=== PATIENT | male | born 1980 | race Caucasian/White ===

== ENCOUNTER 2019-02-10 21:22 | Inpatient (IN) | payer BC, SELFPAY ==
[2019-02-10 22:14] LABS: #Eosinphils 0.1 thou/uL (0.0-0.7); #Lymphocytes 2.4 thou/uL (1.20-3.40); #Monocytes 1.2 thou/uL (0.11-0.59); #Neutrophils 8.9 thou/uL (1.40-6.50); %Basophils 0.4 % (0.0-1.0); %Eosinophils 0.9 % (0.0-10.0); %Lymphocytes 19.3 % (21.0-51.0); %Monocytes 9.1 % (0.0-10.0); %Neutrophils 70.4 % (42.0-75.0); Hemoglobin 13.5 g/dL (14.0-18.0); Mean Corpuscular HGB CONC 32.8 g/dL (32.0-36.0); Mean Corpuscular Hemoglobin 28.6 pg (27.0-31.0); Mean Corpuscular Volume 87.1 fL (78.0-98.0); Mean Platelet Volume 7.3 fL (7.4-10.4); Platelet Count 288 thou/uL (130-400); RBC Distribution Width 12.1 % (11.5-14.5); Red Blood Cell (RBC) Count 4.74 mill/uL (4.70-6.10); White Blood Cell (WBC) Count 12.6 thou/uL (4.8-10.8)
[2019-02-10 22:33] LABS: ALT (SGPT) 57 U/L (8-55); AST (SGOT) 31 U/L (5-34); Albumin 4.2 g/dL (3.5-5.0); Alkaline Phosphatase 97 U/L (40-150); Anion Gap 13 mmol/L (10-20); BUN (Urea Nitrogen) 11 mg/dL (8.9-20.6); Bilirubin, Total 0.5 mg/dL (0.2-1.2); Calc. Creatinine Clearance 0 mL/min (70-130); Calcium 9.8 mg/dL (7.8-10.44); Carbon Dioxide 27 mmol/L (22-29); Chloride 103 mmol/L (98-107); Estimated GFR-MDRD 76; Globulin 3.3 g/dL (2.4-3.5); Glucose 91 mg/dL (70-105); Potassium 3.6 mmol/L (3.5-5.1); Protein, Total 7.5 g/dL (6.0-8.3); Sodium 139 mmol/L (136-145)
[2019-02-10] MEDS ORDERED: Adacel (T-DAP) 0.5 ML SYRINGE ONE (22:52)
[2019-02-10] MEDS ORDERED: metroNIDAZOLE 500 MG/100 ML BAG ONE (23:33)
[2019-02-10] MEDS ORDERED: Acetaminophen 1,000 MG in Premix Bag 1 BAG IVPB SCH (23:45)
[2019-02-11] MEDS ORDERED: Acetaminophen 1,000 MG in Premix Bag 1 BAG IVPB PRN (00:59)
[2019-02-11] MEDS ORDERED: Ondansetron PF 4 MG/2 ML Vial SLOW IVP PRN (01:00)
[2019-02-11] MEDS: Dextrose 5 % And 0.9 % NaCl 1,000 ML IV SCH ×3 (01:09→22:15)
[2019-02-11 01:36] VITALS: BMI 29.5
--- NOTE | 2019-02-11 02:22 | HP ---
REASON FOR ADMISSION: Perirectal abscess. HISTORY OF PRESENT ILLNESS: Mr. Juarez is a pleasant 38-year-old gentleman who has a known history of a left-sided ulcerative colitis dating to 2002. Intermittently, I have seen him since 2007. In the past, he has been on 5-ASA oral and rectal medications as well as occasional rectal steroids. At one time, he was Imuran or 6MP, but did not like these. He felt he was getting more infections, so he stopped them. He had pretty severe disease in [address] Sona Malagon in [place] for a second opinion. They recommended Rowasa enemas, Lialda, and a trial of 6MP instead of Imuran which we did for a while and he actually went to remission. We did discuss even surgery anti-TNF inhibitors, which he did not want to take. Ultimately, he stopped all those medications. In 2011, he had a very minimal disease and was in a clinical remission and had very mild endoscopic disease. He was maintaining on probiotics, and intermittently since that time, he had to take Lialda. In 2012, he was hospitalized with C diff after being on antibiotics for sinus issues. He had very mild inflammation at that endoscopy. Essentially since then, he has been in clinical remission. He undergoes yearly surveillance endoscopies, and on his last exam in June of 2018, had no active disease endoscopically, but on biopsies he had mild colitis of cecum, ascending, transverse, and splenic flexure all the way to the rectum. No definitive ulceration or crypt abscesses seen on those two biopsies, only a small amount of neutrophils and eosinophils. Over the past couple of years when he has had intermittent flare in symptoms, he has noted a small nodule in his perianal area, and on his last digital exam, I could feel what appeared to be small a cord in this area, likely a small fistula tract, but it never had drainage or expanded at one point in time. About 5 years ago, we treated him empirically with little bit of Flagyl and it went away, and it has never drained and he has never had any fissure. I saw him early in this month with flare in symptoms of diarrhea up to 10 to 15 times per day. He thought he had an intestinal viral illness, but symptoms persist. He just felt like he had mild arthralgias and myalgias consistent with his previous flares and started seeing bloody, came to see me. On digital exam, he had the perirectal area was normal, not enlarged. He had no fissures or fissure tracts. At that time, we went ahead and started him on Rowasa and then a steroid taper as well as Lialda which he was not taking. Within the past week, his symptoms have come under control, but he called me that over the weekend noting that he felt that his perirectal nodule was large in size, becoming tender. It was not draining. He had been on some empiric vancomycin for possible Clostridium difficile. He had this before, although Clostridium difficile testing had been negative. That was mainly at his own request. Over the weekend when he began to notice the nodule enlarging in the rectal area, we put him on sitz baths and I called him on Flagyl. He called me today. He was fishing in [place] and noted that it got much larger and was involving inflammation in his right buttocks and causing some severe pain, so he left the trip from [place] and came back here. I saw in the emergency room tonight. He has had low-grade temperature, although he has not taken it; myalgias; feels fluish. He has had no perianal drainage. He has had one bowel movement today with a scant amount of blood, but more formed stool. He has no abdominal pain. He has no oral ulcers, arthralgias, or myalgias. PAST MEDICAL HISTORY: Ulcerative colitis, left-sided. PAST SURGICAL HISTORY: [facility] surgery, left elbow. ALLERGIES: CODEINE. MEDICATIONS AT HOME: 1. Finished steroid taper. 2. Cortenema nightly. 3. Lialda 3 times a day. 4. Oral vancomycin which he is finishing. 5. Oral Flagyl. PHYSICAL EXAMINATION: VITAL SIGNS: Temperature 98, pulse 82, and blood pressure is 137/82. SKIN: Little warm to touch. HEENT: His oropharynx with overt lesions. NECK: Supple. No adenopathy. LUNGS: Clear. HEART: Regular rate and rhythm without clicks or murmurs. ABDOMEN: Soft and nontender without rebound or guarding. EXTREMITIES: No clubbing, cyanosis, or edema. RECTAL: Reveals a perirectal abscess about little bit smaller than a golf ball size right buttock area on digital exam. I feel no fistulous tract in the inside. There is some mild purulent drainage in the rectal exam. The abscess is tense under the skin and there is some cellulitis involving the buttocks, but no crepitus or severe erythema. Does not track toward the scrotal area. LABORATORY DATA: White count 12.6, hemoglobin 13.2, platelet count 228. Comprehensive metabolic profile was normal, except for an ALT of 57, it was 78 back in 2013. He has had previous hepatitis A, B, and C serologies negative. ASSESSMENT: Inflammatory bowel disease has been treated as left-sided ulcerative colitis with perineal abscess. He has had some small wounds in the past, but has since ever drained or had to be intervened with therapeutically. It always seemed to go along with his flares. In light of this, this may be more Crohn's, but he definitely has a perirectal abscess at this time. I will talk with General Surgery, who is going to see him in the morning. PLAN: We will start IV antibiotics of Levaquin and Flagyl. He does not want narcotics for pain. We will give him . We will start IV fluids. Keep on a liquid diet. N.p.o. after midnight for drainage of perirectal abscess. As far as inflammatory bowel disease, we may go ahead at some point in time either during this admission or shortly thereafter to of sigmoidoscopy and see what the status of his disease is. I have talked to him and his and father at the bedside as well about the possibilities of moving on different medications such as TNF specially with the perirectal abscess, which may help to prevent those in the future. Job ID: [id number]
[2019-02-11 04:02] LABS: Bacteria/HPF None Seen HPF (None Seen); Bilirubin Negative (Negative); Blood, Urine Negative (Negative); Clarity Clear (Clear); Glucose, Urine (Dipstick) Normal (Negative); Leukocyte Negative Leu/uL (Negative); Nitrite Negative (Negative); Protein, Urine (Dipstick) Negative (Neg-Trace); Squamous Epithelial None Seen HPF (0-3); Urobilinogen Normal mg/dL (Less than 2); WBC/HPF 0-3 HPF (0-3)
[2019-02-11] MEDS: metroNIDAZOLE 500 MG in Premix Bag 1 BAG IVPB SCH ×2 (08:55→16:50)
[2019-02-11] MEDS ORDERED: Lidocaine 2% Jelly 5 ML TUBE ONE (09:59)
[2019-02-11] MEDS ORDERED: Bupivacaine/Epinephrine 0.25% 30 ML VIAL ONE (09:59)
[2019-02-11] MEDS ORDERED: Midazolam HCl 2 mg/2 ml Vial ONE (10:39)
[2019-02-11] MEDS ORDERED: Fentanyl 100 MCG/2 ML VIAL ONE ×4 (10:39→12:12)
--- NOTE | 2019-02-11 12:33 | CON ---
DATE OF CONSULTATION: 02/11/2019 CONSULTING PHYSICIAN: Robert Loera MD REASON FOR CONSULTATION: Perirectal abscess. HISTORY OF PRESENT ILLNESS: The patient is a very pleasant 38-year-old white male. He has some history of inflammatory bowel disease since about 2004. He has had waxing and waning course with this over the years. He tells me at some point he was seen in consultation for a total colectomy and at other times he has been in complete remission and asymptomatic for several years at a time. He had a flare within the past month and was being treated with oral steroids followed by a steroid enema and Lialda. He also appeared to potentially have Clostridium difficile and was finishing a course of oral vancomycin in regard to this. About 3 days ago, he noted a pinpoint area of discomfort and induration adjacent to his rectum. Over the course of 2 or 3 days, it has expanded dramatically and is now about golf ball size. He was seen by his circuit judge, Dr. Loera, yesterday and was admitted to the hospital. I am consulted for further management of this. PAST MEDICAL HISTORY: Suspected ulcerative colitis. PAST SURGICAL HISTORY: [facility] surgery of his left elbow. ALLERGIES: TO CODEINE AND MORPHINE. MEDICATIONS: 1. He recently completed steroid taper. 2. Cortenema. 3. Lialda. 4. Completing course of oral vancomycin. PERSONAL AND SOCIAL HISTORY: He is with 3 children. He works in financial services. He does not smoke and drinks alcohol occasionally. REVIEW OF SYSTEMS: Otherwise, unremarkable. FAMILY HISTORY: Noncontributory. PHYSICAL EXAMINATION: VITAL SIGNS: He is about 5 feet and 11 inches, weight is 218 pounds. He is afebrile and vital signs are within normal limits. GENERAL: He is a well-developed, well-nourished, pleasant white male, resting in bed, in no acute distress. He is alert and oriented x3. HEAD, EYES, EARS, NOSE, AND THROAT: Unremarkable. NECK: Supple without mass or tenderness. LUNGS: Clear to auscultation throughout. CARDIAC: Regular rate and rhythm without murmur. ABDOMEN: Soft, nontender, and nondistended. EXTREMITIES: Unremarkable. RECTAL: Digital exam is not performed. There was an obvious fluctuant perirectal abscess. This appears to primarily be to the right side of the anus, perhaps at the 8 o'clock radian. It is large enough, however, that it encompasses several hours on the radian scale. LABORATORY DATA: CBC reveals white blood cell count of 12.6, hemoglobin 13.5. Comprehensive metabolic panel is unremarkable except that he has an elevated C-reactive protein of 5.6. ASSESSMENT: The patient with obvious perirectal abscess. PLAN: Incision and drainage. I have discussed the procedure in detail with the patient. His parents are at bedside and this was discussed with them as well. They understand and agree to proceed with surgery at this time. Job ID: [id number]
[2019-02-11] MEDS ORDERED: HYDROcodone/Acetaminophen 7.5/325 mg Tablet PO PRN (12:49)
[2019-02-11] MEDS ORDERED: traMADol HCl 50 MG TAB PO PRN (15:42)
[2019-02-12] MEDS: metroNIDAZOLE 500 MG in Premix Bag 1 BAG IVPB SCH ×3 (00:01→16:49)
--- NOTE | 2019-02-12 02:25 | OP ---
DATE OF PROCEDURE: 02/11/2019 PREOPERATIVE DIAGNOSIS: Left perirectal abscess (3 o'clock radian). POSTOPERATIVE DIAGNOSIS: Left perirectal abscess (3 o'clock radian). OPERATION PERFORMED: Incision and drainage of perirectal abscess. ANESTHESIA: General with laryngeal mask airway. INDICATIONS: The patient is a 38-year-old white male. He has a history of inflammatory bowel disease. He developed perirectal abscess over the past couple of days and now has a large painful fluctuant mass. He is taken to the operative room at this time for incision and drainage. DESCRIPTION OF OPERATION: Informed consent was obtained. The patient was taken to the operating room where general anesthesia was obtained with the patient in supine position. He was placed into dorsal lithotomy using candy-cane stirrups. Perianal area was trimmed of hair, prepped with Betadine and draped in sterile fashion. Local anesthetic was infiltrated around the obvious fluctuant mass using 0.25% Marcaine with epinephrine. A stab incision was then created over the fluctuant lesion. Dark purulent material was expressed. Cultures were obtained. The overlying tissue was sharply excised in order to completely unroof the abscess cavity. Internal loculations were taken down. There did appear to be a potential area of communication with the distal rectum on the medial aspect of the abscess cavity. A tract was not identified, but there was a thin layer of tissue with this area. Hemostasis was obtained with electrocautery. The wound was irrigated with peroxide. It was debrided with gauze debridement and packed with peroxide moistened gauze. Dry gauze dress was placed externally. There were no complications. The size of the abscess cavity when completed was about 2.5 cm in diameter externally, extending internally about 2 cm. Job ID: [id number]
--- NOTE | 2019-02-12 08:54 | PRG ---
DATE OF SERVICE: 02/11/2019 SUBJECTIVE: Mr. Juarez and in quite a bit of pain and drainage. He has eaten a little bit, still mildly nauseated. OBJECTIVE: VITAL SIGNS: Temperature 98.7, pulse 87, blood pressure 130/79. LUNGS: Clear. HEART: Regular rate and rhythm. ABDOMEN: Soft, nontender. He has packing in the perirectal area. EXTREMITIES: No clubbing, cyanosis, or edema. LABORATORY DATA: Yesterday C-reactive protein came back at 5.7, sedimentation rate was 16. ASSESSMENT: 1. Inflammatory bowel disease, previously treated as ulcerative colitis, seemingly left-sided limited disease, waxing, waning in severity with recent flare, responding to Cortenema and Lialda with no Clostridium difficile. 2. Perirectal abscess, status post drainage. This raises concern of Crohn's manifestation versus inflammatory bowel disease. PLAN: We will plan for discharge home tomorrow on oral 5-ASAs. We will hold off on the steroid enemas. Plan for flexible sigmoidoscopy next week to re-evaluate his inflammatory bowel disease. It looks more like Crohn's and go ahead and start anti TNF inhibitor . Job ID: [id number]
[2019-02-12] MEDS ORDERED: Acetaminophen 1,000 MG in Premix Bag 1 BAG IVPB PRN (11:12)
[2019-02-12 16:51] VITALS: BP 132/81; TEMP 97.6
--- NOTE | 2019-02-13 06:10 | DIS ---
DATE OF ADMISSION: 02/10/2019 DATE OF DISCHARGE: 02/12/2019 ADMITTING DIAGNOSES: 1. History of ulcerative colitis, recent flare. 2. Perirectal abscess. CONSULTS: Harris Gan MD. SURGERIES: I and D of perirectal abscess by Dr. Harris Gan. DISCHARGE DISPOSITION: The patient will be discharged home on regular diet. DISCHARGE INSTRUCTIONS: 1. Continue Tylenol p.r.n. for pain. We will resume his Lialda 1.2 g four p.o. q.a.m. 2. We will finish the vancomycin he has at home and stop the metronidazole he has at home. We will see him back in the office in 1 week. HOSPITAL COURSE: The patient was admitted to the hospital via the emergency room. He had been called me noting that he was having worsening and increased painful fluctuance in his right buttocks area. In the emergency room, physical exam confirmed perirectal abscess. He had no overt fever, except for initial temperature of 99.8 on admission. His white count was 12.6, hemoglobin was 13.5. C-reactive protein was 5.5. Liver function tests were normal. ESR was 16. The patient was admitted, placed on IV antibiotics overnight and then had a drainage of his perirectal abscess yesterday. I observed him yesterday overnight. He has continued to improve with decreased pain. He has had a bowel movement and he will go home today. General Surgery is recommended sitz baths and also to let the packing just come out. Job ID: [id number]
== END 2019-02-12 18:15 | disposition home or self-care (01) | DRG 345 ==
LOC: ERS 21:22 → T4-A 22:15
PROVIDERS: ADMIT Internal Medicine Gastroenterology; ATTEND Internal Medicine Gastroenterology
PROC: 0D9P0ZZ Drainage of Rectum, Open Approach (ICD-10-PCS; principal; 2019-02-11)
DX: K61.1 Rectal abscess (principal); K51.90 Ulcerative colitis, unspecified, without complications; Z88.5 Allergy status to narcotic agent
CPT/HCPCS: 36415; 80053; 81001; 83605; 85025; 85652; 86140; 86480; 87070; 87077; 87086; 87186; 87205; 90471; 90715; 96365; 96374; J0131; J1956; J2250; J3010

== ENCOUNTER 2019-10-14 10:17 | Outpatient (CLI) | payer BC | END 2019-10-14 10:18 | disposition home or self-care (01) | LOC: CTENTCT 10:17 | PROVIDERS: ATTEND Otolaryngology Plastic Surgery within the Head & Neck | DX: J34.2 Deviated nasal septum (principal); J01.91 Acute recurrent sinusitis, unspecified | CPT/HCPCS: 70486 ==

== ENCOUNTER 2019-11-07 10:00 | Outpatient (CLI) | payer BC ==
--- NOTE | 2019-11-07 10:21 | RAD ---
SUPINE ABDOMEN: Date: 11/07/2019 HISTORY: Left abdominal pain. FINDINGS: Bowel gas pattern unremarkable. There is scattered stool and gas throughout the colon. Small bowel ga s pattern is unremarkable. No mass effect or abnormal calcification. Osseous structures appear unrema rkable. IMPRESSION: Unremarkable bowel gas pattern. POS: [facility]
== END 2019-11-07 10:01 | disposition home or self-care (01) ==
LOC: RAD-FRANK 10:00
PROVIDERS: ATTEND Nurse Practitioner Family
DX: R10.9 Unspecified abdominal pain (principal)
CPT/HCPCS: 74018

== ENCOUNTER 2019-11-17 05:42 | Outpatient (CLI) | payer BC, OTHER ==
[2019-11-17 17:59] LABS: SARS-CoV-2 MS2 Positive; SARS-CoV-2 N Gene Negative; SARS-CoV-2 S Gene Negative; SARS-CoV-2 orf1ab Negative
== END 2019-11-17 05:43 | disposition home or self-care (01) ==
LOC: LABBT 05:42
PROVIDERS: ATTEND Otolaryngology Plastic Surgery within the Head & Neck
DX: Z01.812 Encounter for preprocedural laboratory examination (principal); Z11.59 Encounter for screening for other viral diseases; J34.3 Hypertrophy of nasal turbinates; J32.8 Other chronic sinusitis; K21.9 Gastro-esophageal reflux disease without esophagitis; H54.7 Unspecified visual loss; J34.2 Deviated nasal septum; R68.89 Other general symptoms and signs
CPT/HCPCS: 87635; U0002

== ENCOUNTER 2019-11-19 05:50 | Day surgery (SDC) | payer BC ==
[2019-11-17 09:44] VITALS: BMI 30.2
[2019-11-19] MEDS ORDERED: Midazolam HCl 2 mg/2 ml Vial ONE (06:27)
[2019-11-19] MEDS ORDERED: Fentanyl 100 MCG/2 ML VIAL ONE ×3 (06:27→09:16)
[2019-11-19] MEDS ORDERED: AFRIN NASAL MIST 15 ML BOT ONE ×2 (06:46→06:47)
[2019-11-19] MEDS ORDERED: Lidocaine 1% w/Epinephrine 1:100K 20 ML VIAL ONE (06:46)
[2019-11-19] MEDS ORDERED: Bacitracin Zinc Ointment 30 gm TUBE ONE (06:46)
[2019-11-19] MEDS ORDERED: Lidocaine 1% PF 5 ML VIAL ONE (08:09)
[2019-11-19] MEDS ORDERED: Ondansetron PF 4 MG/2 ML Vial ONE (08:09)
[2019-11-19] MEDS ORDERED: Succinylcholine Chloride 20 MG/ML 10 ml SYRINGE FS ONE (08:09)
[2019-11-19] MEDS ORDERED: Rocuronium Bromide 10 MG/ML (10ML VIAL) ONE (08:09)
[2019-11-19] MEDS ORDERED: Dexamethasone 20 MG/5 ML VIAL ONE (08:09)
[2019-11-19] MEDS ORDERED: Glycopyrrolate 0.2 MG/ML 5 ML SYRINGE ONE (08:09)
[2019-11-19] MEDS ORDERED: PROPOFOL 200 MG/20 ML VIAL ONE (08:09)
[2019-11-19] MEDS ORDERED: Labetalol HCl 100 MG/20 ML VIAL ONE ×2 (08:09→08:45)
[2019-11-19] MEDS ORDERED: hydrALAZINE 20 MG/ML VIAL ONE (09:05)
[2019-11-19] MEDS ORDERED: Hydrocodone-Acetamin 15 ML UDCUP ONE (10:09)
--- NOTE | 2019-11-19 11:28 | OP ---
DATE OF PROCEDURE: 11/19/2019 PREOPERATIVE DIAGNOSES: 1. Chronic rhinosinusitis. 2. Nasal septal deviation. 3. Bilateral inferior turbinate hypertrophy. 4. Nasal obstruction. 5. Headaches. POSTOPERATIVE DIAGNOSES: 1. Chronic rhinosinusitis. 2. Nasal septal deviation. 3. Bilateral inferior turbinate hypertrophy. 4. Nasal obstruction. 5. Headaches. PROCEDURES: 1. Bilateral endoscopic sinus surgery, total ethmoidectomy including sphenoidotomy with removal of tissue. 2. Bilateral endoscopic sinus surgery, maxillary antrostomy. 3. Bilateral endoscopic sinus surgery, frontal sinusotomy. 4. Nasal septoplasty. 5. Bilateral inferior turbinate submucosal resection. ESTIMATED BLOOD LOSS: 50 mL. COMPLICATIONS: None. ANESTHESIA: GETA. PROCEDURE IN DETAIL: Patient was taken to the operating room and placed supine on the table. General endotracheal anesthesia was obtained by the anesthesia staff. Then 1% lidocaine with 1:100,000 epinephrine was injected into the nasal septum as well as the inferior turbinates. The patient was prepped and draped in standard surgical fashion. The Afrin pledgets were then removed. A Overlea incision was made on the left nasal septum. Submucoperichondrial dissection was performed bilaterally of the deviated portions of the septum, which included the maxillary crest and the crest deviation, as well as the mid portion of the septum. Cartilage and bony deviation was removed, leaving a generous caudal and dorsal strut. Any straight pieces of cartilage were then placed within the cartilage press, pressed, straightened, and then placed between the mucoperichondrial flaps, which were then closed using a 4-0 gut stitch. The inferior turbinates were then punctured with the submucosal Coblation machine, and 3 separate coblations were delivered to the anterior inferior portion of the inferior turbinates. Following this, the nasal cavity was irrigated. All debris was removed. An orogastric tube was placed. Gastric contents and Vargas splints were then placed in the nasal cavity and sutured with a 3-0 silk stitch. Following this, the 0-degree endoscope was advanced into the middle meatus. The middle turbinates were gently medialized and the uncinate process was visualized bilaterally. The uncinate was then anteriorly fractured using a ball-ended probe bilaterally. Thick purulence was noted from the maxillary sinuses bilaterally and a culture was taken endoscopically from this right maxillary sinus. Following this, the 0-degree microdebrider was used to remove the uncinate process bilaterally as well as widen the maxillary sinus ostia bilaterally along with the straight Blakesley forceps. Following this, the ethmoidal bulla was identified bilaterally and was punctured on its medial and inferior aspect using the 0-degree microdebrider bilaterally. The ethmoidal bulla was removed along with the anterior ethmoidal cells using the 0-degree microdebrider and the up-biting Blakesley forceps bilaterally. Following this, the grand lamella was identified and was punctured into the posterior ethmoidal cells. Working from posterior to anterior, the ethmoidal cells were opened in a mucosal sparing technique. Following this, the sphenoid sinus ostia were identified. There was polypoid tissue obstructing the area along with purulence, which was removed using the 0-degree microdebrider and straight Blakesley forceps. Following this, the sphenoid sinus ostia were then punctured using the 0-degree microdebrider and the sphenoid sinus ostia were widened in a medial and inferior direction bilaterally. Following this, a 45-degree endoscope along with the 40-degree microdebrider blade was used to further open the anterior ethmoidal cells and expose the frontal sinus ostia bilaterally. The frontal sinus ostia were then widened using the 40-degree microdebrider and up-biting Blakesley forceps bilaterally. Following this, the nasal cavity was irrigated. NasoPore packing was placed within the middle meatus bilaterally. Vargas splints were placed and secured, and the inferior turbinates were laterally outfractured using the Cubero elevator. The patient tolerated procedure well. Job ID: [id number]
== END 2019-11-19 12:00 | disposition home or self-care (01) ==
LOC: SDC 05:50
PROVIDERS: ATTEND Otolaryngology Plastic Surgery within the Head & Neck
PROC: 09BL0ZZ Excision of Nasal Turbinate, Open Approach (ICD-10-PCS; principal; 2019-11-19)
PROC: 099Q8ZZ Drainage of Right Maxillary Sinus, Via Natural or Artificial Opening Endoscopic (ICD-10-PCS; principal; 2019-11-19)
PROC: 09TV8ZZ Resection of Left Ethmoid Sinus, Via Natural or Artificial Opening Endoscopic (ICD-10-PCS; principal; 2019-11-19)
PROC: 09RM07Z Replacement of Nasal Septum with Autologous Tissue Substitute, Open Approach (ICD-10-PCS; principal; 2019-11-19)
PROC: 09TU8ZZ Resection of Right Ethmoid Sinus, Via Natural or Artificial Opening Endoscopic (ICD-10-PCS; principal; 2019-11-19)
PROC: 099R8ZZ Drainage of Left Maxillary Sinus, Via Natural or Artificial Opening Endoscopic (ICD-10-PCS; principal; 2019-11-19)
PROC: 09BX8ZZ Excision of Left Sphenoid Sinus, Via Natural or Artificial Opening Endoscopic (ICD-10-PCS; principal; 2019-11-19)
PROC: 09QT8ZZ Repair Left Frontal Sinus, Via Natural or Artificial Opening Endoscopic (ICD-10-PCS; principal; 2019-11-19)
PROC: 09QS8ZZ Repair Right Frontal Sinus, Via Natural or Artificial Opening Endoscopic (ICD-10-PCS; principal; 2019-11-19)
PROC: 09BW8ZZ Excision of Right Sphenoid Sinus, Via Natural or Artificial Opening Endoscopic (ICD-10-PCS; principal; 2019-11-19)
DX: J32.4 Chronic pansinusitis (principal); J34.2 Deviated nasal septum; J34.3 Hypertrophy of nasal turbinates; B96.89 Other specified bacterial agents as the cause of diseases classified elsewhere; Z79.51 Long term (current) use of inhaled steroids; Z79.899 Other long term (current) drug therapy; Z88.0 Allergy status to penicillin; Z88.1 Allergy status to other antibiotic agents; Z88.2 Allergy status to sulfonamides; Z88.5 Allergy status to narcotic agent
CPT/HCPCS: 87070; 87077; 87186; 87205; J0360; J1100; J2001; J2250; J2405; J2704; J3010

== ENCOUNTER 2020-01-05 12:54 | Outpatient (CLI) | payer BC ==
--- NOTE | 2020-01-05 14:08 | CT ---
EXAM: CT ABDOMEN AND PELVIS HISTORY: Left upper quadrant pain. History of ulcerative colitis COMPARISON: 10/17/2012 Procedure: Multiple contiguous axial images were obtained and a CT of the abdomen and pelvis with IV contrast. C oronal reformats were performed. FINDINGS: Lower Chest: Small bleb in the right lower lobe. No mass or consolidation. Vessels: Normal caliber aorta. No periaortic fat stranding Heart: Normal heart size. No significant pericardial fluid Abdomen: Portal vein:Patent Gallbladder: No calcified gallstones. Normal caliber wall. Liver: within normal limits. Pancreas: within normal limits. Spleen: within normal limits. Adrenals: within normal limits. Kidneys: Symmetric enhancement. Nonobstructing 2 mm calculus in the lower pole of the left kidney. Bi laterally no obstructive uropathy. Peritoneum: No ascites or free air, no fluid collection. Bowel: No evidence of bowel obstruction. Ileocecal junction is unremarkable. Normal caliber appendix. Scattered fecal material in a nondistended, nondilated colon. Mesentery and Retroperitoneum: No enlarged mesenteric or retroperitoneal lymph nodes. Abdominal Wall: Small umbilical hernia containing mesenteric fat. Pelvis: Reproductive Organs: Reproductive organs are unremarkable. Pelvis: No mass, lymphadenopathy, free air or free fluid. Bladder: within normal limits. Bones: within normal limits. IMPRESSION: No evidence of acute intraabdominal\pelvic abnormality.
== END 2020-01-05 12:55 | disposition home or self-care (01) ==
LOC: BICCT 12:54
PROVIDERS: ATTEND Internal Medicine Gastroenterology
DX: R10.12 Left upper quadrant pain (principal)
CPT/HCPCS: 74177

== ENCOUNTER 2020-03-26 05:42 | Emergency (ER) | payer BC ==
[2020-03-26 06:38] LABS: Bilirubin Negative (Negative); Blood, Urine Negative (Negative); Clarity Clear (Clear); Glucose, Urine (Dipstick) Normal (Negative); Ketone, Urine Negative (Negative); Leukocyte Negative Leu/uL (Negative); Nitrite Negative (Negative); Protein, Urine (Dipstick) Negative (Neg-Trace); Specific Gravity, Urine 1.013 (1.002-1.036); Urobilinogen Normal mg/dL (Less than 2); pH, Urine 5.5 (5.0-9.0)
[2020-03-26 06:39] LABS: #Basophils 0.1 thou/uL (0.0-0.2); #Eosinphils 0.2 thou/uL (0.0-0.7); #Lymphocytes 2.2 thou/uL (1.20-3.40); #Monocytes 0.6 thou/uL (0.11-0.59); #Neutrophils 4.4 thou/uL (1.40-6.50); %Basophils 0.7 % (0.0-1.0); %Lymphocytes 29.5 % (21.0-51.0); %Monocytes 7.9 % (0.0-10.0); %Neutrophils 59.8 % (42.0-75.0); Hemoglobin 15.5 g/dL (14.0-18.0); Mean Corpuscular HGB CONC 33.5 g/dL (32.0-36.0); Mean Corpuscular Hemoglobin 28.9 pg (27.0-31.0); Mean Corpuscular Volume 86.5 fL (78.0-98.0); Mean Platelet Volume 8.7 fL (7.4-10.4); Platelet Count 252 thou/uL (130-400); RBC Distribution Width 11.3 % (11.5-14.5); Red Blood Cell (RBC) Count 5.35 mill/uL (4.70-6.10); White Blood Cell (WBC) Count 7.3 thou/uL (4.8-10.8)
[2020-03-26 06:59] LABS: ALT (SGPT) 21 U/L (8-55); AST (SGOT) 15 U/L (5-34); Albumin 4.5 g/dL (3.5-5.0); Alkaline Phosphatase 64 U/L (40-110); Anion Gap 11 mmol/L (10-20); BUN (Urea Nitrogen) 11 mg/dL (8.9-20.6); Bilirubin, Total 0.3 mg/dL (0.2-1.2); Calc. Creatinine Clearance 0 mL/min (70-130); Calcium 9.6 mg/dL (7.8-10.44); Carbon Dioxide 27 mmol/L (22-29); Chloride 104 mmol/L (98-107); Estimated GFR-MDRD 82; Glucose 106 mg/dL (70-105); Lipase 37 U/L (8-78); Potassium 3.9 mmol/L (3.5-5.1); Protein, Total 7.5 g/dL (6.0-8.3); Sodium 138 mmol/L (136-145)
--- NOTE | 2020-03-26 07:28 | CT ---
CT ABDOMEN AND PELVIS WITH CONTRAST: COMPARISON: 01/05/2020. HISTORY: Left-sided abdominal pain with increasing intensity over the last 24-48 hours. TECHNIQUE: Multiple contiguous axial images were obtained in a CT of the abdomen and pelvis with contrast. Sagi ttal and coronal reformats were performed. FINDINGS: The liver, gallbladder, kidneys, adrenal glands, spleen, and pancreas are unremarkable. No free air, free fluid, or stranding changes are seen in the abdomen or pelvis. The large and small bowel are unremarkable. The appendix is normal. No abdominal or pelvic lymphade nopathy are seen. The osseous structures, visualized inferior thorax, and abdominal wall soft tissues were unremarkable . IMPRESSION: No evidence of acute intraabdominal/pelvic abnormality. POS: [facility]
[2020-03-26] MEDS ORDERED: Iopamidol-370 76% 500 ML 1 ML ONE (11:24)
== END 2020-03-26 07:23 | disposition home or self-care (01) ==
LOC: ERS 05:42
DX: R10.9 Unspecified abdominal pain (principal)
CPT/HCPCS: 74177; 80053; 81003; 83690; 85025

== ENCOUNTER 2020-04-04 14:05 | Emergency (ER) | payer BC ==
--- NOTE | 2020-04-04 14:58 | RAD ---
PA CHEST: History: Chest pain FINDINGS: Lungs are clear. Heart and mediastinum appear normal. Vasculature normal. IMPRESSION: No acute process. POS: [facility]
[2020-04-04 15:59] LABS: #Basophils 0.1 thou/uL (0.0-0.2); #Eosinphils 0.1 thou/uL (0.0-0.7); #Lymphocytes 1.8 thou/uL (1.20-3.40); #Monocytes 0.4 thou/uL (0.11-0.59); #Neutrophils 5.8 thou/uL (1.40-6.50); %Basophils 0.7 % (0.0-1.0); %Eosinophils 0.7 % (0.0-10.0); %Lymphocytes 21.9 % (21.0-51.0); %Monocytes 5.5 % (0.0-10.0); %Neutrophils 71.2 % (42.0-75.0); Mean Corpuscular HGB CONC 33.7 g/dL (32.0-36.0); Mean Corpuscular Hemoglobin 28.8 pg (27.0-31.0); Mean Corpuscular Volume 85.3 fL (78.0-98.0); Mean Platelet Volume 8.5 fL (7.4-10.4); Platelet Count 260 thou/uL (130-400); RBC Distribution Width 11.2 % (11.5-14.5); Red Blood Cell (RBC) Count 5.56 mill/uL (4.70-6.10); White Blood Cell (WBC) Count 8.1 thou/uL (4.8-10.8)
[2020-04-04 16:18] LABS: ALT (SGPT) 20 U/L (8-55); AST (SGOT) 15 U/L (5-34); Albumin 4.7 g/dL (3.5-5.0); Alkaline Phosphatase 67 U/L (40-110); Anion Gap 14 mmol/L (10-20); BUN (Urea Nitrogen) 10 mg/dL (8.9-20.6); Bilirubin, Total 0.5 mg/dL (0.2-1.2); Calc. Creatinine Clearance 0 mL/min (70-130); Calcium 9.5 mg/dL (7.8-10.44); Carbon Dioxide 26 mmol/L (22-29); Chloride 104 mmol/L (98-107); Estimated GFR-MDRD 72; Globulin 3.1 g/dL (2.4-3.5); Glucose 94 mg/dL (70-105); Potassium 4.1 mmol/L (3.5-5.1); Protein, Total 7.8 g/dL (6.0-8.3); Sodium 140 mmol/L (136-145)
== END 2020-04-04 16:52 | disposition home or self-care (01) ==
LOC: ERS 14:05
DX: R00.2 Palpitations (principal); R07.9 Chest pain, unspecified
CPT/HCPCS: 36415; 71045; 80053; 84484; 85025; 93005

== ENCOUNTER 2020-05-27 09:51 | Outpatient (CLI) | payer BC ==
--- NOTE | 2020-05-27 11:47 | ULT ---
RIGHT UPPER QUADRANT ULTRASOUND: Date: 05/27/2020 INDICATION: Epigastric abdominal pain. FINDINGS: No focal hepatic lesion is evident. The visualized gallbladder is normal appearing. There is appropri ate flow within the main portal vein. Gallbladder is normal appearing. No sonographic Arriaga's sign i s reported. The common bile duct measured 3.9 mm. The right kidney measured 11.3 x 6.4 x 6.1 cm. Panc reas was difficult to visualize due to overlying bowel gas. IMPRESSION: No definite acute sonographic abnormality in the right upper quadrant. POS: [facility]
== END 2020-05-27 09:52 | disposition home or self-care (01) ==
LOC: BICULT 09:51
PROVIDERS: ATTEND Internal Medicine Gastroenterology
DX: R10.13 Epigastric pain (principal)
CPT/HCPCS: 76705

== ENCOUNTER 2021-06-14 09:12 | Outpatient (CLI) | payer BC | END 2021-06-14 09:13 | disposition home or self-care (01) | LOC: RAD-FRANK 09:12 | PROVIDERS: ATTEND Nurse Practitioner Family | DX: R07.9 Chest pain, unspecified (principal) | CPT/HCPCS: 71046 ==

== ENCOUNTER 2022-10-24 10:18 | Outpatient (CLI) | payer OTHER | END 2022-10-24 10:19 | disposition home or self-care (01) | LOC: BICRAD 10:18 | PROVIDERS: ATTEND Internal Medicine Gastroenterology | DX: R07.89 Other chest pain (principal); R05.9 Cough, unspecified | CPT/HCPCS: 71046 ==